=== PATIENT | female | born 1940 | race Caucasian/White ===

== ENCOUNTER 2024-06-23 10:47 | Inpatient (IN) ==
[2024-06-23] MEDS: ONDANSETRON 4 MG/2 ML VIAL IV ONE ×2 (11:29→16:52)
[2024-06-23] MEDS: 0.9 % SODIUM CHLORIDE 1,000 ML IV ONE ×3 (11:29→13:11)
[2024-06-23 11:44] LABS: Basophils # (Auto) 0.02 K/mcL (0.00-0.30); Basophils % (Auto) 0 % (0.0-2.0); Eosinophils # (Auto) 0.04 K/mcL (0.00-0.70); Eosinophils % (Auto) 0.1 % (0.0-7.0); Hematocrit 41.1 % (34.1-44.9); Hemoglobin 13.7 g/dL (11.2-15.7); Lymphocytes # (Auto) 2.44 K/mcL (1.50-4.80); Lymphocytes % (Auto) 4.8 % (15.5-49.0); Mean Cell Volume 90.9 fL (80.0-100.0); Mean Corpuscular HGB Conc 33.3 g/dL (31.0-36.0); Mean Platelet Volume 12.5 fL (8.8-12.5); Monocytes # (Auto) 1.69 K/mcL (0.10-0.90); Monocytes % (Auto) 3.3 % (1.0-12.0); Neutrophils % (Auto) 86.9 % (38.0-78.0); Platelet Count 208 K/mcL (140-440); RBC 4.52 M/mcL (3.59-5.38); Red Cell Distribution Width 14.6 % (11.5-14.5); WBC 51.2 K/mcL (4.5-11.0)
[2024-06-23 12:04] LABS: Creatine Kinase 189 U/L (24-170)
[2024-06-23 12:05] LABS: ALT/SGPT 43 U/L (<40); AST/SGOT 94 U/L (<32); Alkaline Phosphatase 468 U/L (39-117); Bilirubin,Total 8.2 mg/dL (0.1-1.0); Blood Urea Nitrogen 60 mg/dL (8-23); Calcium 9.1 mg/dL (8.6-10.4); Carbon Dioxide 20 mmol/L (22-30); Chloride 90 mmol/L (96-108); Globulin 3.1 gm/dL (2.2-3.7); Glomerular Filtration Rate 13; Glucose 74 mg/dL (70-105); Potassium 4.2 mmol/L (3.3-5.1); Sodium 127 mmol/L (133-145)
[2024-06-23 12:24] LABS: Appearance,Urine TURBID (Clear); Bacteria,Urine MANY /hpf (0); Bilirubin,Urine Negative (Negative); Color,Urine RED; Culture Indicated,Urine No; Glucose,Urine (UA) Negative (Negative); Ketones,Urine Negative (Negative); Leukocyte Esterase,Urine 75 /uL (Negative); Mucus,Urine FEW /hpf; Nitrate,Urine POS (Negative); Protein,Urine 100 mg/dL (Negative); Specific Gravity,Urine 1.019 (1.000-1.035); Urine Blood 0.03 mg/dL (Negative); Urine RBC 108 /hpf (0-3); Urine Squamous Epithelial Cell 32 /hpf (0-4); Urine WBC > 182 /hpf (0-4)
[2024-06-23 12:48] LABS: Free T4 (Free Thyroxine) 1.27 ng/dL (0.93-1.70)
[2024-06-23 13:07] LABS: Band Neutrophils % 13 % (0-10); Lymphocytes % 6 % (15-49); Monocytes % (Manual) 1 % (1-12); Platelet Estimate NORMAL (Normal); RBC Morphology NORMAL (Normal); Segmented Neutrophils % 80 % (38-78)
[2024-06-23] MEDS: HYDROcodone/APAP 10/325MG TABLET PO ONE (13:12)
[2024-06-23] MEDS: CIPROFLOXACIN 400 MG/200 ML BAG IV ONE (13:12)
[2024-06-23] MEDS: HYDROcodone/APAP 5/325MG TABLET PO ONE (13:17)
[2024-06-23 13:57] LABS: Basophils # (Auto) 0.01 K/mcL (0.00-0.30); Basophils % (Auto) 0 % (0.0-2.0); Eosinophils # (Auto) 0.04 K/mcL (0.00-0.70); Eosinophils % (Auto) 0.1 % (0.0-7.0); Hematocrit 40.3 % (34.1-44.9); Hemoglobin 13.3 g/dL (11.2-15.7); Lymphocytes # (Auto) 1.83 K/mcL (1.50-4.80); Lymphocytes % (Auto) 4.2 % (15.5-49.0); Mean Cell Volume 92.6 fL (80.0-100.0); Mean Platelet Volume 12.4 fL (8.8-12.5); Monocytes # (Auto) 1.27 K/mcL (0.10-0.90); Monocytes % (Auto) 2.9 % (1.0-12.0); Neutrophils % (Auto) 87.4 % (38.0-78.0); Platelet Count 194 K/mcL (140-440); RBC 4.35 M/mcL (3.59-5.38); Red Cell Distribution Width 14.6 % (11.5-14.5); WBC 43.5 K/mcL (4.5-11.0)
[2024-06-23 14:18] LABS: Blood Urea Nitrogen 59 mg/dL (8-23); Calcium 8.4 mg/dL (8.6-10.4); Carbon Dioxide 18 mmol/L (22-30); Chloride 94 mmol/L (96-108); Glomerular Filtration Rate 14; Glucose 87 mg/dL (70-105); Potassium 4.2 mmol/L (3.3-5.1); Sodium 128 mmol/L (133-145)
[2024-06-23 14:56] LABS: INR 4.5 (0.9-1.1); Prothrombin Time 43.7 sec (11.9-14.5)
[2024-06-23] MEDS ORDERED: ACETAMINOPHEN 325 MG TABLET PO PRN (17:18)
[2024-06-23] MEDS ORDERED: IPRATROPIUM/ALBUTEROL 3 ML AMPUL.NEB NEB PRN (17:18)
[2024-06-23] MEDS: 0.9 % SODIUM CHLORIDE 1,000 ML IV SCH ×2 (17:55→23:15)
[2024-06-23] MEDS: MEROPENEM 0.5 GM in 0.9 % SODIUM CHLORIDE 50 ML IV SCH (19:20)
[2024-06-23] MEDS ORDERED: WARFARIN 5 MG TABLET PO SCH (19:30)
[2024-06-23] MEDS: HYDROcodone/APAP 10/325MG TABLET PO PRN (20:00)
[2024-06-23] MEDS: 0.9 % SODIUM CHLORIDE 10 ML SYRINGE IV SCH (20:31)
[2024-06-23] MEDS: FLURBIPROFEN SODIUM OP SCH (20:31)
[2024-06-23] MEDS: Dorzolamide-Timolol 22.3-6.8 mg/mL drops OU SCH (20:31)
[2024-06-23] MEDS: metroNIDAZOLE 500 MG/100 ML BAG IV SCH (23:35)
[2024-06-23] MEDS: PHYTONADIONE 10 MG/ML AMPUL SQ ONE (23:36)
[2024-06-23] MEDS: metroNIDAZOLE 100 ML IV ONE (23:39)
[2024-06-23] MEDS: PHYTONADIONE 10 MG/ML AMPUL ONE (23:39)
[2024-06-24 00:06] LABS: Hepatitis A Antibody IgM Non-Reactive (Non-Reactive); Hepatitis B Surface Antigen Negative (Negative); Hepatitis C Virus Antibody Non-Reactive (Non-Reactive)
[2024-06-24] MEDS: oxyCODONE IR 5 MG TABLET PO PRN (00:29)
[2024-06-24 00:30] LABS: Creatinine,Urine Random 60.1 mg/dL (28.0-217.0)
[2024-06-24] MEDS: oxyCODONE IR 5 MG TABLET PO ONE ×2 (00:31→05:46)
[2024-06-24 06:34] LABS: Basophils # (Auto) 0.01 K/mcL (0.00-0.30); Basophils % (Auto) 0 % (0.0-2.0); Eosinophils # (Auto) 0.11 K/mcL (0.00-0.70); Eosinophils % (Auto) 0.4 % (0.0-7.0); Hematocrit 38.3 % (34.1-44.9); Hemoglobin 12.9 g/dL (11.2-15.7); Lymphocytes # (Auto) 1.65 K/mcL (1.50-4.80); Lymphocytes % (Auto) 5.6 % (15.5-49.0); Mean Cell Volume 90.8 fL (80.0-100.0); Mean Corpuscular HGB Conc 33.7 g/dL (31.0-36.0); Mean Platelet Volume 12.4 fL (8.8-12.5); Monocytes # (Auto) 1.01 K/mcL (0.10-0.90); Monocytes % (Auto) 3.4 % (1.0-12.0); Neutrophils % (Auto) 86.1 % (38.0-78.0); Platelet Count 183 K/mcL (140-440); RBC 4.22 M/mcL (3.59-5.38); Red Cell Distribution Width 14.5 % (11.5-14.5); WBC 29.4 K/mcL (4.5-11.0)
[2024-06-24 07:06] LABS: ALT/SGPT 36 U/L (<40); AST/SGOT 68 U/L (<32); Albumin 2.6 gm/dL (3.2-5.2); Alkaline Phosphatase 516 U/L (39-117); Bilirubin,Total 7.6 mg/dL (0.1-1.0); Blood Urea Nitrogen 67 mg/dL (8-23); Calcium 8.5 mg/dL (8.6-10.4); Carbon Dioxide 15 mmol/L (22-30); Chloride 98 mmol/L (96-108); Globulin 2.6 gm/dL (2.2-3.7); Glomerular Filtration Rate 15; Glucose 57 mg/dL (70-105); Potassium 3.6 mmol/L (3.3-5.1); Sodium 131 mmol/L (133-145)
[2024-06-24 07:09] LABS: Prothrombin Time 31.6 sec (11.9-14.5)
[2024-06-24] MEDS ORDERED: FERROUS SULFATE 325 MG TABLET PO SCH (08:00)
[2024-06-24] MEDS: VANCOMYCIN 125 MG CAPSULE PO SCH (08:07)
[2024-06-24] MEDS ORDERED: CIPROFLOXACIN 400 MG/200 ML BAG IV SCH (08:30)
[2024-06-24 08:34] LABS: Immunoglobulin M 53.9 mg/dL (40.0-230.0)
[2024-06-24] MEDS ORDERED: ASPIRIN 81 MG TAB.CHEW PO SCH (09:00)
[2024-06-24] MEDS: cefTRIAXone 2 GM in DEXTROSE 5% IN WATER 50 ML IV SCH (10:03)
[2024-06-24] MEDS: LIDOCAINE 4% TOP PATCH TOPICAL ONE (11:45)
[2024-06-24] MEDS: WARFARIN 5 MG TABLET PO ONE (14:59)
[2024-06-25 06:25] LABS: Basophils # (Auto) 0.01 K/mcL (0.00-0.30); Basophils % (Auto) 0.1 % (0.0-2.0); Eosinophils # (Auto) 0.28 K/mcL (0.00-0.70); Eosinophils % (Auto) 2.6 % (0.0-7.0); Hemoglobin 12.1 g/dL (11.2-15.7); Lymphocytes # (Auto) 0.81 K/mcL (1.50-4.80); Lymphocytes % (Auto) 7.6 % (15.5-49.0); Mean Cell Volume 90.9 fL (80.0-100.0); Mean Corpuscular HGB Conc 33.6 g/dL (31.0-36.0); Mean Platelet Volume 12.5 fL (8.8-12.5); Monocytes # (Auto) 0.51 K/mcL (0.10-0.90); Monocytes % (Auto) 4.8 % (1.0-12.0); Platelet Count 144 K/mcL (140-440); RBC 3.96 M/mcL (3.59-5.38); Red Cell Distribution Width 14.4 % (11.5-14.5); WBC 10.7 K/mcL (4.5-11.0)
[2024-06-25 06:44] LABS: INR 1.3 (0.9-1.1); Prothrombin Time 16.8 sec (11.9-14.5)
[2024-06-25 06:47] LABS: Phosphorous 3.6 mg/dL (2.5-4.5)
[2024-06-25 06:52] LABS: ALT/SGPT 33 U/L (<40); AST/SGOT 64 U/L (<32); Albumin 2.4 gm/dL (3.2-5.2); Albumin/Globulin Ratio 1.1 (1.0-2.3); Alkaline Phosphatase 567 U/L (39-117); Bilirubin,Total 7.9 mg/dL (0.1-1.0); Blood Urea Nitrogen 56 mg/dL (8-23); Calcium 8.3 mg/dL (8.6-10.4); Carbon Dioxide 15 mmol/L (22-30); Chloride 107 mmol/L (96-108); Globulin 2.2 gm/dL (2.2-3.7); Glomerular Filtration Rate 25; Glucose 72 mg/dL (70-105); Sodium 136 mmol/L (133-145)
[2024-06-25] MEDS: POTASSIUM ACETATE 2 MEQ/ML ML IV ONE (09:26)
[2024-06-25] MEDS: LIDOCAINE 4% TOP PATCH TOPICAL SCH (09:34)
[2024-06-25] MEDS: POTASSIUM ACETATE IV SCH (11:09)
[2024-06-25] MEDS: SODIUM CHLORIDE 0.9% IV SCH (11:09)
[2024-06-25] MEDS: 0.9 % SODIUM CHLORIDE 1,000 ML IV SCH (11:09)
[2024-06-25] MEDS: WARFARIN 5 MG TABLET PO SCH (14:51)
[2024-06-25] MEDS: TRAVOPROST OPHTH DROPS BOTTLE 2.5ML OU SCH (20:47)
[2024-06-26 06:21] LABS: Basophils # (Auto) 0.02 K/mcL (0.00-0.30); Basophils % (Auto) 0.3 % (0.0-2.0); Eosinophils # (Auto) 0.37 K/mcL (0.00-0.70); Eosinophils % (Auto) 4.8 % (0.0-7.0); Hematocrit 36.8 % (34.1-44.9); Hemoglobin 12.2 g/dL (11.2-15.7); Lymphocytes % (Auto) 14.2 % (15.5-49.0); Mean Cell Volume 91.8 fL (80.0-100.0); Mean Corpuscular HGB Conc 33.2 g/dL (31.0-36.0); Mean Platelet Volume 12.5 fL (8.8-12.5); Monocytes # (Auto) 0.78 K/mcL (0.10-0.90); Neutrophils % (Auto) 69.4 % (38.0-78.0); Platelet Count 133 K/mcL (140-440); RBC 4.01 M/mcL (3.59-5.38); Red Cell Distribution Width 14.6 % (11.5-14.5); WBC 7.8 K/mcL (4.5-11.0)
[2024-06-26 06:32] LABS: INR 1.3 (0.9-1.1); Prothrombin Time 16.6 sec (11.9-14.5)
[2024-06-26 06:38] LABS: Phosphorous 2.2 mg/dL (2.5-4.5)
[2024-06-26 06:43] LABS: ALT/SGPT 29 U/L (<40); AST/SGOT 53 U/L (<32); Albumin 2.3 gm/dL (3.2-5.2); Alkaline Phosphatase 577 U/L (39-117); Blood Urea Nitrogen 34 mg/dL (8-23); Calcium 8.3 mg/dL (8.6-10.4); Carbon Dioxide 16 mmol/L (22-30); Chloride 109 mmol/L (96-108); Globulin 2.2 gm/dL (2.2-3.7); Glomerular Filtration Rate 46; Glucose 100 mg/dL (70-105); Potassium 3.2 mmol/L (3.3-5.1); Sodium 135 mmol/L (133-145)
[2024-06-26] MEDS: cefTRIAXone 2 GM VIAL ONE (09:38)
[2024-06-26] MEDS: POTASSIUM PHOSPHATE 20 MEQ in DEXTROSE 5% IN WATER 250 ML IV SCH (10:22)
[2024-06-26] MEDS: LOPERAMIDE 2 MG CAPSULE PO PRN (13:05)
[2024-06-26] MEDS: DEXTROSE 5% IV ONE (16:01)
[2024-06-26] MEDS: [UNRECOGNIZED DRUG - OTHER] IV ONE (16:01)
[2024-06-26] MEDS: POTASSIUM CHLORIDE IV ONE (16:01)
[2024-06-26] MEDS: SODIUM BICARBONATE IV ONE (16:01)
[2024-06-26 20:42] LABS: Bilirubin,Direct 7.7 mg/dL (<0.3)
[2024-06-27 06:45] LABS: ALT/SGPT 24 U/L (<40); AST/SGOT 45 U/L (<32); Albumin 2.1 gm/dL (3.2-5.2); Alkaline Phosphatase 540 U/L (39-117); Bilirubin,Direct 6.7 mg/dL (<0.3); Bilirubin,Total 7.7 mg/dL (0.1-1.0); Blood Urea Nitrogen 22 mg/dL (8-23); Carbon Dioxide 17 mmol/L (22-30); Chloride 106 mmol/L (96-108); Globulin 2.2 gm/dL (2.2-3.7); Glomerular Filtration Rate 79; Glucose 135 mg/dL (70-105); Lactate Dehydrogenase 150 U/L (135-225); Phosphorous 2.3 mg/dL (2.5-4.5); Potassium 3.8 mmol/L (3.3-5.1); Sodium 133 mmol/L (133-145); Triglycerides 110 mg/dL (<150); Uric Acid 5.9 mg/dL (2.5-8.0)
[2024-06-27 07:14] LABS: INR 1.4 (0.9-1.1); Prothrombin Time 17.4 sec (11.9-14.5)
[2024-06-27] MEDS: ENOXAPARIN 60 MG/0.6 ML SYRINGE SQ SCH (08:50)
[2024-06-27] MEDS: metroNIDAZOLE 500 MG/100 ML BAG IV SCH (08:50)
[2024-06-27] MEDS: SODIUM BICARBONATE 650 MG TABLET PO SCH (08:50)
[2024-06-27] MEDS ORDERED: ENOXAPARIN 60 MG/0.6 ML SYRINGE SQ SCH (09:00)
[2024-06-27] MEDS: WARFARIN 5 MG TABLET PO SCH (14:12)
[2024-06-28 06:33] LABS: INR 1.9 (0.9-1.1); Prothrombin Time 22.5 sec (11.9-14.5)
[2024-06-28 07:08] LABS: ALT/SGPT 22 U/L (<40); AST/SGOT 50 U/L (<32); Albumin 2.2 gm/dL (3.2-5.2); Albumin/Globulin Ratio 1.1 (1.0-2.3); Alkaline Phosphatase 545 U/L (39-117); Bilirubin,Direct 5.3 mg/dL (<0.3); Bilirubin,Total 6.4 mg/dL (0.1-1.0); Blood Urea Nitrogen 15 mg/dL (8-23); Carbon Dioxide 19 mmol/L (22-30); Chloride 106 mmol/L (96-108); Glomerular Filtration Rate 83; Glucose 93 mg/dL (70-105); Lactate Dehydrogenase 190 U/L (135-225); Phosphorous 2.5 mg/dL (2.5-4.5); Potassium 3.8 mmol/L (3.3-5.1); Sodium 134 mmol/L (133-145); Triglycerides 108 mg/dL (<150); Uric Acid 5.1 mg/dL (2.5-8.0)
[2024-06-28] MEDS ORDERED: WARFARIN 5 MG TABLET PO SCH (14:00)
[2024-06-28] MEDS: APIXABAN 5 MG TABLET PO SCH (20:26)
[2024-06-28] MEDS: ONDANSETRON 4 MG/2 ML VIAL IV PRN (21:25)
[2024-06-29 16:35] LABS: Leptospira DNA, QL NOT DETECTED; Source: BLOOD
[2024-07-04 17:10] LABS: DNA AB(DS) Crithidia, IFA NEGATIVE (NEGATIVE); Rhuematoid Factor 15 IU/mL (<14); SM Antibody <1.0 NEG AI (<1.0 NEGATIVE); SM/RNP Antibody <1.0 NEG AI (<1.0 NEGATIVE); SS-A <1.0 NEG AI (<1.0 NEGATIVE); SS-B <1.0 NEG AI (<1.0 NEGATIVE); Scl-70 <1.0 NEG AI (<1.0 NEGATIVE)
== END 2024-06-29 12:35 | DRG 689 ==
LOC: ED 10:47 → ICU 17:10 → MEDSUR 06-27 21:50
PROVIDERS: ADMIT Internal Medicine; ATTEND Internal Medicine